=== PATIENT | female | born 1970 | race African-American/Black ===

== ENCOUNTER 2019-04-05 19:47 | Emergency (ER) | payer BC, OTHER ==
[2019-04-05 20:16] VITALS: BP 117/77; PULSE 83; TEMP 98; BMI 23.8
--- NOTE | 2019-04-06 02:32 | PDOC ---
Documentation entered by Robyn Rose SCRIBE, acting as scribe for Estrella Lundberg MD. Estrella Lundberg MD: This documentation has been prepared by the yuyreMilton Aiswarya, SCRIBE, under my direction and personally reviewed by me in its entirety. I confirm that the documentation accurately reflects all work, treatment, procedures, and medical decision making performed by me. History of Present Illness - General Chief Complaint: Respiratory Stated Complaint: COUGH X 1 MONTH Time Seen by Provider: 04/05/19 19:51 History Source: Patient Exam Limitations: No Limitations - History of Present Illness Initial Comments: 04/05/19 20:27 The patient is a 50 year old female, with a significant PMH Sjogrens and G6PD, who presents to the emergency department complaining of a cough that began one month ago. The patient states cough began with cold symptoms 1 month ago but progressively worsened throughout the weeks, mild relief with cough syrup. Patient states she feels like short of breath at times and that cough is exacerbated with talking. The patient denies chest pain, headache and dizziness.Denies fever, chills, nausea, vomit, diarrhea and constipation. Denies dysuria, frequency, urgency and hematuria. Allergies: aspirin, Sulfa Past surgical history: None reported Social history: None reported PCP: Zaid Peck Past History - Past Medical History Allergies/Adverse Reactions: Allergies Allergy/AdvReac Type Severity Reaction Status Date / Time aspirin AdvReac Verified 04/05/19 19:49 Sulfa (Sulfonamide AdvReac Verified 04/05/19 19:49 Antibiotics) Home Medications: Ambulatory Orders NK [No Known Home Medication] 04/05/19 Review of Systems - Review of Systems Able to Perform ROS?: Yes Comments:: 04/05/19 20:27 GENERAL/CONSTITUTIONAL: No fever or chills. No weakness. HEAD, EYES, EARS, NOSE AND THROAT: No change in vision. No ear pain or discharge. No sore throat. CARDIOVASCULAR:+Sob. No chest pain RESPIRATORY: +cough. No wheezing, or hemoptysis. GASTROINTESTINAL: No nausea, vomiting, diarrhea or constipation. GENITOURINARY: No dysuria, frequency, or change in urination. MUSCULOSKELETAL: No joint or muscle swelling or pain. No neck or back pain. SKIN: No rash NEUROLOGIC: No headache, vertigo, loss of consciousness, or change in strength/ sensation. ENDOCRINE: No increased thirst. No abnormal weight change. HEMATOLOGIC/LYMPHATIC: No anemia, easy bleeding, or history of blood clots. ALLERGIC/IMMUNOLOGIC: No hives or skin allergy. *Physical Exam - Vital Signs Last Vital Signs Temp Pulse Resp BP Pulse Ox 98.0 F 83 16 117/77 98 04/05/19 19:48 04/05/19 19:48 04/05/19 19:48 04/05/19 19:48 04/05/19 19:48 - Physical Exam Comments: 04/05/19 20:28 GENERAL: Awake, alert, and fully oriented, in no acute distress HEAD: No signs of trauma ENT: Auricles normal inspection, hearing grossly normal, nares patent, oropharynx clear without exudates. Moist mucosa NECK: Normal ROM, supple, no lymphadenopathy, JVD, or masses LUNGS:+Minimal decreased breath sounds on left compared to right. No wheezes, and no crackles HEART: Regular rate and rhythm, normal S1 and S2, no murmurs, rubs or gallops EXTREMITIES: Normal range of motion, no edema. No clubbing or cyanosis. No cords, erythema, or tenderness NEUROLOGICAL: Cranial nerves II through XII grossly intact. Normal speech, normal gait SKIN: Warm, Dry, normal turgor, no rashes or lesions ED Treatment Course - RADIOLOGY Radiology Studies Ordered: Category Date Time Status CHEST PA & LAT [RAD] Stat Radiology 04/05/19 20:18 Taken Medical Decision Making - Medical Decision Making As noted above, this 48-year-old woman with possible early Sjogren's syndrome but no other significant history presents with approximately one month with nonproductive cough. She notes that the clinical course has generally been improving but that she still coughs at times, especially when she talks a lot. No evidence of acute bronchospasm during any of this time. Exam is noted. Because of the persistence of the dry cough, chest x-ray is warranted evaluate for atypical pneumonia or other acute pathology [id number] PGU is negative. Chest x-ray performed: Preliminary interpretation by me-no evidence of acute pathology. Clinical presentation consistent with subacute bronchitis; possibly with some persistent hyperactivity of the airway Results discussed with the patient. CD copy of the film provided for the patient (patient's father is a radiologist). Patient is advised to follow-up with her PMD or commercial relationship manager for further functional testing such as PFTs. She should return to the ER if she has shortness of breath/wheezing/high fever *DC/Admit/Observation/Transfer Diagnosis at time of Disposition: Bronchitis - Discharge Dispostion Disposition: HOME Condition at time of disposition: Stable - Referrals Referrals: Zaid Peck V [Primary Care Provider] - - Patient Instructions Printed Discharge Instructions: Cough Additional Instructions: Drink plenty of water Can use cough suppressant as directed when needed Return to ER if you have severe, persistent cough/shortness of breath/wheezing/ fever Follow-up with your doctor or commercial relationship manager for further workup as discussed within the next 5 days - Post Discharge Activity
== END 2019-04-05 21:12 | disposition home or self-care (01) ==
LOC: FER 19:47
DX: J40 Bronchitis, not specified as acute or chronic (principal); M35.00 Sjogren syndrome, unspecified
CPT/HCPCS: 71046-TC-FY; 81025; 99281-25

== ENCOUNTER 2021-09-05 09:36 | Emergency (ER) | payer BC ==
[2021-09-05 09:44] VITALS: BP 117/80; PULSE 87; TEMP 98.1; BMI 25.9
[2021-09-05 11:03] LABS: BASO % 2.8 % (0-2.0); EOS % 1.4 % (0-4.5); HEMATOCRIT 34.7 % (32.4-45.2); HEMOGLOBIN 11.3 GM/dl (10.7-15.3); LYMPH % 31.4 % (8-40); MCH 24.6 pg (25.7-33.7); MCHC 32.6 g/dl (32.0-36.0); MEAN CELL VOLUME 75.4 fl (80-96); MEAN PLT VOLUME 8.3 fl (7.5-11.1); MONO % 5.3 % (3.8-10.2); NEUT % 59.1 % (42.8-82.8); PLATELET COUNT 246 10^3/uL (134-434); RBC 4.59 M/mm3 (3.60-5.2); RDW 14.6 % (11.6-15.6); WHITE BLOOD COUNT 3.4 K/mm3 (4.0-10.8)
[2021-09-05 11:10] LABS: ALBUMIN 3.7 g/dl (3.4-5.0); ALK PHOS 71 U/L (45-117); ANION GAP 12 MMOL/L (8-16); BILIRUBIN,TOTAL 0.4 mg/dl (0.2-1); CALCIUM 9.4 mg/dl (8.5-10); CHLORIDE 103 mmol/L (98-107); CO2 21 mmol/L (21-32); CREATININE 0.9 mg/dl (0.55-1.3); GLUCOSE,RANDOM 116 mg/dl (74-106); SGOT/AST 26 U/L (15-37); SGPT/ALT 21 U/L (13-61); SODIUM 136 mmol/L (136-145); TOT PROT 7.1 g/dl (6.4-8.2)
[2021-09-05] MEDS ORDERED: ACETAMINOPHEN 325 MG TABLET (FP) PO ONE (11:23)
[2021-09-05] MEDS ORDERED: ACETAMINOPHEN 500 MG TABLET (FP) ONE (13:25)
== END 2021-09-05 14:56 | disposition home or self-care (01) ==
LOC: FER 09:36
DX: R07.9 Chest pain, unspecified (principal)
CPT/HCPCS: 36415; 71046-TC-FY; 80053; 82550; 84484; 85025; 93005; 99285-25